=== PATIENT | female | born 1990 | race American Indian/Alaskan Native ===

== ENCOUNTER 2017-09-10 14:49 | Emergency (ER) | payer MEDICAID ==
[2017-09-10 15:37] VITALS: BP 125/76; PULSE 83; RESP 18; TEMP 98.7; O2SAT 100; BMI 19.2
[2017-09-10] MEDS ORDERED: Sodium Chloride 0.9% 500 ML IV STA (16:45)
--- NOTE | 2017-09-10 16:50 | ED PDOC ---
Arrival/HPI - General Chief Complaint: Abdominal Pain Time Seen by Provider: 09/10/17 16:07 Historian: Patient - History of Present Illness Narrative History of Present Illness (Text): you were treated in the ED today for stated , having abdomen pain with nausea, and history of migraine headaches and having mild gradual onset pain without light senstivitiy today but otherwise without any vomiting/dizziness/ difficulty breathing/chest pain/numbness/tingling/loss of limb function/pain with urination/vaginal bleeding/discharge. you didn't want sexual disease testing or pretreatment. 09/10/17 16:49 09/10/17 19:34 09/10/17 19:36 Time/Duration: 1 week Symptom Onset: Gradual Symptom Course: Resolved Past Medical History - Provider Review Nursing Documentation Reviewed: Yes - Travel History Have you recently traveled outside [place] w/in the past 3 mons?: No - Cardiac Hx Cardiac Disorders: No - Pulmonary Hx Respiratory Disorders: No - Neurological Hx Neurological Disorder: No - HEENT Hx HEENT Disorder: No - Renal Hx Renal Disorder: No - Endocrine/Metabolic Hx Systemic Lupus Erythematosus: Yes - Hematological/Oncological Hx Blood Disorders: No - Integumentary Hx Dermatological Disorder: No - Musculoskeletal/Rheumatological Hx Musculoskeletal Disorders: No - Gastrointestinal Hx Gastrointestinal Disorders: No - Genitourinary/Gynecological Hx Genitourinary Disorders: No - Psychiatric Hx Psychophysiologic Disorder: No Hx Substance Use: No Family/Social History - Physician Review Nursing Documentation Reviewed: Yes Family/Social History: No Known Family HX Smoking Status: Never Smoked Hx Alcohol Use: Yes Frequency of alcohol use: Socially Hx Substance Use: No Allergies/Home Meds Allergies/Adverse Reactions: Allergies No Known Allergies Allergy (Verified 09/10/17 15:37) Review of Systems - Review of Systems Constitutional: Normal Eyes: Normal ENT: Normal Respiratory: Normal Cardiovascular: Normal Gastrointestinal: Abdominal Pain, Nausea Genitourinary Female: Normal Musculoskeletal: Normal Skin: Normal Neurological: Headache Endocrine: Normal Hemo/Lymphatic: Normal Psychiatric: Normal Physical Exam Vital Signs Reviewed: Yes Vital Signs Temp Pulse Resp BP Pulse Ox 09/10/17 15:30 98.7 F 83 18 125/76 100 Temperature: Afebrile Blood Pressure: Normal Pulse: Regular Respiratory Rate: Normal Appearance: Positive for: Well-Appearing, Non-Toxic, Comfortable Pain Distress: None Mental Status: Positive for: Alert and Oriented X 3 - Systems Exam Head: Present: Atraumatic, Normocephalic Pupils: Present: PERRL Extroacular Muscles: Present: EOMI Conjunctiva: Present: Normal Ears: Present: Normal Mouth: Present: Moist Mucous Membranes Pharnyx: Present: Normal Nose (External): Present: Atraumatic Nose (Internal): Present: Normal Inspection Neck: Present: Normal Range of Motion Respiratory/Chest: Present: Clear to Auscultation, Good Air Exchange Cardiovascular: Present: Regular Rate and Rhythm Abdomen: No: Tenderness, Distention, Normal Bowel Sounds, Peritoneal Signs, Rebound, Guarding, McBurney's Point Tender, Rovsing's Sign Present, Hernias, Feeding Tubes, Ostomy Tubes, Mass/Organomegaly, Scars, Other Genitourinary/Pelvic Exam: Present: Other (refused. cautioned for missed diagnosis/complications) Upper Extremity: Present: Normal Inspection Lower Extremity: Present: Normal Inspection Neurological: Present: GCS=15, CN II-XII Intact, Speech Normal, Motor Func Grossly Intact Skin: Present: Warm, Normal Color Psychiatric: Present: Alert, Oriented x 3, Normal Insight, Normal Concentration Medical Decision Making ED Course and Treatment: you were treated in the ED today for stated , having abdomen pain with nausea, and history of migraine headaches and having mild gradual onset pain without light sensitivitiy today but otherwise without any vomiting/dizziness/ difficulty breathing/chest pain/numbness/tingling/loss of limb function/pain with urination/vaginal bleeding/discharge. you didn't want sexual disease testing or pretreatment. You were otherwise breathing easily, pink/moist lips, smiling and talking on the phone, good strength/sensation, alert/oriented, walking easily, clear lungs, no abdomen tenderness, you refused pelvic exam and cautioned for missed diagnosis/complications but you stated you will go to obstetrics physician, no fever temp 98.7, stable heart rate 83, stable breathing rate 18, excellent oxygen level 100% room air, elevated blood pressure _125/76 which we recommend repeat in 2-3 days primary care office to determine further treatment, you have blood tests no infection count 10, stable blood level hemoglobin 12/platelets 239, stable chemistry, mildly low glucose 62 and you were given food to eat, urine test negative for infection, urine test positive and blood test positive 95, 187, radiology pelvis ultrasound single live / heart rate 147/13 weeks 4 days, observation, tylenol done in the ED with improvement, counselled to rest and thus discharged home. 1. Recommend tylenol for pain as directed. 2. Recommend follow-up primary care 2 days to review symptoms, referral to obstetrics clinic for ovary cyst to ensure no complications/cancer development, neurology for review of your migraine headache history. 4. If any worsening pain, fever, chills, nausea, vomiting, difficulty breathing, numbness, loss of limb function , pain with urination or any medical condition then return to the ED. 09/10/17 19:40 09/10/17 19:41 09/10/17 19:42 09/10/17 19:47 - Lab Interpretations Lab Results: 09/10/17 17:17 09/10/17 17:17 Lab Results 09/10/17 17:17: Beta HCG, Quant 07714.00 H 09/10/17 17:17: Sodium 137, Potassium 4.1, Chloride 103, Carbon Dioxide 24, Anion Gap 14, BUN 11, Creatinine 0.4 L, Est GFR ( Amer) > 60, Est GFR ( Non-Af Amer) > 60, Random Glucose 62 L, Calcium 9.7, Total Bilirubin 0.3, AST 31 , ALT 23, Alkaline Phosphatase 33 L, Total Protein 7.9, Albumin 4.0, Globulin 3.8, Albumin/Globulin Ratio 1.1 09/10/17 17:17: Urine Color Yellow, Urine Appearance Clear, Urine pH 6.0, Ur Specific [place] 1.025, Urine Protein Negative, Urine Glucose (UA) Negative, Urine Ketones Trace H, Urine Blood Negative, Urine Nitrate Negative, Urine Bilirubin Negative, Urine Urobilinogen 0.2, Ur Leukocyte Esterase Negative, Urine HCG, Qual Positive 09/10/17 17:17: PT 12.4, INR 1.09 H, APTT 30.8 09/10/17 17:17: WBC 10.1, RBC 3.68, Hgb 12.1, Hct 34.1 L, MCV 92.7, MCH 32.9, MCHC 35.5, RDW 12.9, Plt Count 239, MPV 10.0, Gran % 68.9 H, Lymph % (Auto) 22.3 , Ada % (Auto) 8.5 H, Eos % (Auto) 0.2 L, Baso % (Auto) 0.1, Gran # 6.98 H, Lymph # 2.3, Ada # 0.9 H, Eos # 0.0, Baso # 0.01 I have reviewed the lab results: Yes - RAD Interpretation Radiology Orders: 09/10/17 16:45 AGE [US] Stat Manager Electrical: Radiologist - Medication Orders Current Medication Orders: Discontinued Medications Acetaminophen (Tylenol 325mg Tab) 975 mg PO STAT STA Stop: 09/10/17 16:48 Last Admin: 09/10/17 17:08 Dose: 975 mg MAR Pain/Vitals Document 09/10/17 17:08 OCS (Rec: 09/10/17 17:09 OCS [place] [id number]) Pain Reassessment Is This A Pain ReAssessment? Yes Sleep Is patient sleeping during reassessment? No Presence of Pain Presence of Pain Yes Pain Scale Used Pain Scale Used Numeric Location Left, Right or Bilateral Bilateral Pain Location Body Site Abdomen Description Constant Intensity 10 Scale Used Numeric Pain Behavior Irritability Aggravating Factors ADL's Sodium Chloride (Sodium Chloride 0.9%) 500 mls @ 1,000 mls/hr IV .Q30M STA Stop: 09/10/17 17:14 Last Admin: 09/10/17 17:07 Dose: 1,000 mls/hr eMAR Start Stop Document 09/10/17 17:07 OCS (Rec: 09/10/17 17:08 OCS [place] [id number]) Intravenous Solution Start Date 09/10/17 Start Time 17:07 End Date 09/10/17 End time 17:37 Total Infusion Time 30 Disposition/Present on Arrival - Present on Arrival Any Indicators Present on Arrival: No History of DVT/PE: No History of Uncontrolled Diabetes: No Urinary Catheter: No History of Decub. Ulcer: No History Surgical Site Infection Following: None - Disposition Have Diagnosis and Disposition been Completed?: Yes Diagnosis: Disposition: HOME/ ROUTINE Disposition Time: 19:48 Patient Plan: Discharge Condition: IMPROVED Additional Instructions: you were treated in the ED today for stated , having abdomen pain with nausea, and history of migraine headaches and having mild gradual onset pain without light sensitivitiy today but otherwise without any vomiting/dizziness/ difficulty breathing/chest pain/numbness/tingling/loss of limb function/pain with urination/vaginal bleeding/discharge. you didn't want sexual disease testing or pretreatment. You were otherwise breathing easily, pink/moist lips, smiling and talking on the phone, good strength/sensation, alert/oriented, walking easily, clear lungs, no abdomen tenderness, you refused pelvic exam and cautioned for missed diagnosis/complications but you stated you will go to obstetrics physician, no fever temp 98.7, stable heart rate 83, stable breathing rate 18, excellent oxygen level 100% room air, elevated blood pressure _125/76 which we recommend repeat in 2-3 days primary care office to determine further treatment, you have blood tests no infection count 10, stable blood level hemoglobin 12/platelets 239, stable chemistry, mildly low glucose 62 and you were given food to eat, urine test negative for infection, urine test positive and blood test positive 95, 187, radiology pelvis ultrasound single live / heart rate 147/13 weeks 4 days, observation, tylenol done in the ED with improvement, counselled to rest and thus discharged home. 1. Recommend tylenol for pain as directed. 2. Recommend follow-up primary care 2 days to review symptoms, referral to obstetrics clinic for ovary cyst to ensure no complications/cancer development, neurology for review of your migraine headache history. 4. If any worsening pain, fever, chills, nausea, vomiting, difficulty breathing, numbness, loss of limb function , pain with urination or any medical condition then return to the ED. Prescriptions: Acetaminophen [Tylenol 325mg tab] 650 mg PO Q6 PRN 5 Days #20 tab PRN Reason: Pain, Mild (1-3) Referrals: Ana Kang, [Primary Care Provider] - Follow up with primary Forms: B-Obvious ([place]ian)
[2017-09-10 17:34] LABS: URINE BILIRUBIN NEGATIVE (NEGATIVE); URINE BLOOD NEGATIVE (NEGATIVE); URINE GLUCOSE (UA) NEGATIVE (NEGATIVE); URINE LEUKOCYTE ESTERASE NEGATIVE Leu/uL (NEGATIVE); URINE NITRATE NEGATIVE (NEGATIVE); URINE PROTEIN NEGATIVE mg/dL (<30 mg/dL); URINE UROBILINOGEN 0.2 E.U./dL (<1 E.U./dL)
[2017-09-10 17:36] LABS: BASO # 0.01 K/mm3 (0.0-2.0); BASO % 0.1 % (0.0-3.0); EOS % 0.2 % (1.5-5.0); GRAN # 6.98 (1.4-6.5); GRAN % 68.9 % (50.0-68.0); HEMOGLOBIN 12.1 g/dL (12.0-16.0); LYMPH # 2.3 (1.2-3.4); LYMPH % 22.3 % (22.0-35.0); MEAN CELL VOLUME 92.7 fl (80.0-105.0); MEAN CORPUSCULAR HEMOGLOBIN 32.9 pg (25.0-35.0); MEAN CORPUSCULAR HGB CONC 35.5 g/dl (31.0-37.0); MONO # 0.9 (0.1-0.6); MONO % 8.5 % (1.0-6.0); RBC 3.68 10^6/uL (3.5-6.1); RED CELL DISTRIBUTION WIDTH 12.9 % (11.5-14.5); WHITE BLOOD COUNT 10.1 10^3/ul (4.5-11.0)
[2017-09-10 17:37] LABS: URINE APPEARANCE CLEAR (CLEAR); URINE COLOR YELLOW (YELLOW)
[2017-09-10 17:38] LABS: HCG,QUALITATIVE URINE POSITIVE (NEGATIVE)
[2017-09-10 17:42] LABS: INR 1.09 (0.93-1.08); PARTIAL THROMBOPLASTIN TIME 30.8 Seconds (25.1-36.5); PROTHROMBIN TIME 12.4 SECONDS (9.4-12.5)
[2017-09-10 18:18] LABS: ALB/GLOB RATIO 1.1 (1.1-1.8); ALT/SGPT 23 U/L (7-56); AST/SGOT 31 U/L (14-36); BLOOD UREA NITROGEN 11 mg/dL (7-21); CALCIUM 9.7 mg/dL (8.4-10.5); GFR AFRICAN-AMERICAN > 60; GFR NON-AFRICAN AMERICAN > 60
--- NOTE | 2017-09-10 19:12 | US ---
EXAM: US After First Trimester, Transabdominal CLINICAL HISTORY: 27 years old, female; Pain; complicated by abdominal or pelvic pain; Lower; Second trimester; Gestational age or lmp: 13; ; Additional info: 27yof, pelvic discomfort, TECHNIQUE: Real-time transabdominal obstetrical ultrasound of the maternal pelvis and a second or third trimester with image documentation. COMPARISON: No relevant prior studies available. FINDINGS: Fetus: Single live intrauterine gestation. Heart rate: heart rate of 147 beats per minute. Presentation: Variable. Placenta: Fundal placenta. No placenta previa or abruption. Amniotic fluid: Normal. Anatomy: No gross anomaly is appreciated. BIOMETRICS Gestational age by US: Estimated gestational age of 13 weeks 4 days by measurements. EFW: Estimated weight of 76 g. BPD: 2.2 cm, correlating with 13 weeks 4 days. HC: 8.5 cm, correlating with 13 weeks 5 days. AC: 6.9 cm, correlating with 13 weeks 3 days. FL: 1.1 cm, correlating with 13 weeks 2 days. MATERNAL: Uterus: Unremarkable. No myometrial mass. Cervix: No cervical dilatation or effacement. Adnexa: RIGHT ovary: Normal. LEFT ovary: Probable 1.8 x 1.6 x 1.8 cm corpus luteal cyst. No adnexal masses. Free fluid: No significant free fluid. IMPRESSION: 1. Single live intrauterine gestation.
== END 2017-09-10 20:05 | disposition home or self-care (01) ==
LOC: ED 14:49
DX: O26.891 Other specified pregnancy related conditions, first trimester (principal); Z3A.13 13 weeks gestation of pregnancy
CPT/HCPCS: 76815; 80053; 81003; 82948; 84702; 84703; 85025; 85610; 85730; 87086; 99284; J7040